=== PATIENT | female | born 1960 | race Caucasian/White ===

== ENCOUNTER 2018-03-06 14:55 | Observation (INO) ==
[2018-03-06 16:27] LABS: Bilirubin,Urine Moderate (Negative); Blood,Urine Negative (Negative); Clarity,Urine Cloudy (Clear); Color,Urine Orange (Yellow); Glucose,Urine (UA) Normal (Normal); Ketones,Urine 40 mg/dL (Negative); Leukocyte Esterase,Urine Small (Negative); Nitrite,Urine Negative (Negative); Protein,Urine 30 mg/dL (Neg-Trace); Specific Gravity,Urine 1.025 (1.010-1.025)
[2018-03-06 16:30] LABS: Bacteria,Urine Few per hpf (None-Few); Hyaline Casts,Urine Few per lpf (None-Few); Squamous Epithelial Cell,Urine Many per lpf (None-Few)
[2018-03-06 16:41] LABS: RBC,Urine 0-3 per hpf (0-3)
[2018-03-06] MEDS ORDERED: 0.9 % Sodium Chloride 1,000 ML IVC ONE ×2 (16:41→17:25)
[2018-03-06] MEDS ORDERED: Ondansetron 4 MG/2 ML VIAL IVP ONE ×2 (16:41→18:17)
--- NOTE | 2018-03-06 16:44 | Emergency Department Note ---
Disposition Clinical Impression: Hypokalemia Hypotension Qualifiers: Hypotension type: unspecified hypotension type Qualified Code(s): I95.9 - Hypotension, unspecified Intractable nausea and vomiting Qualifiers: Vomiting type: unspecified Qualified Code(s): R11.2 - Nausea with vomiting, unspecified Pneumonia Qualifiers: Pneumonia type: due to unspecified organism Laterality: right Lung location: unspecified part of lung Qualified Code(s): J18.9 - Pneumonia, unspecified organism Disposition: Admitted As Inpatient Condition: Good Referrals: Dillon Rasmussen Jr, MD [Primary Care Provider] - Eric Mckenzie MD [Family Provider] - Forms: ED Satisfaction Letter Time of Disposition: 18:54 General Adult HPI - General Chief complaint: ED Nausea/Vomiting/Diarrhea Stated complaint: vomiting, nausea Time Seen by Provider: 03/06/18 16:22 Source: patient, family Limitations: no limitations Nursing Notes Reviewed: Yes Vital Signs Reviewed: Yes - History of Present Illness HPI Narrative: 57 year old female presents emergency department with concern for chills weakness of last week. Patient's reported uncontrolled nausea or vomiting. She reports some mild abdominal discomfort as well as generalized in nature. Patient does have previous history of stroke. Patient denies any slurring of speech, unilateral numbness or tingling of the upper or lower extremities. She does report some mild paresthesias of both upper extremities. Patient denies any fevers, chills, cough. She does report some mild exertional dyspnea. No known history of congestive heart failure. Denies any pedal edema. Pain Scale: 7 - Related Data Home Medications Medication Instructions Recorded Confirmed Citalopram Hydrobromide 20 mg PO DAILY 03/06/18 03/06/18 [Citalopram HBr] Labetalol HCl [Labetalol HCl] 200 mg PO BID 03/06/18 03/06/18 LevETIRAcetam [Keppra] 500 mg PO BID 03/06/18 03/06/18 Losartan/Hydrochlorothiazide 1 tab PO DAILY 03/06/18 03/06/18 [Losartan-Hctz 50-12.5 mg Tab] NIFEdipine [Nifedipine ER] 90 mg PO DAILY 03/06/18 03/06/18 Tramadol HCl [Ultram] 50 mg PO QID PRN 03/06/18 03/06/18 Allergies Allergy/AdvReac Type Severity Reaction Status Date / Time captopril [From Capoten] AdvReac Seizure Verified 03/06/18 18:40 promethazine [From Phenergan] AdvReac Seizure Verified 03/06/18 18:40 All systems ED: reviewed and negative except as stated. Review of Systems: As Per HPI Constitutional: Reports: weakness. Denies: fever, chills Cardiovascular: Denies: chest pain, palpitations, edema, syncope Respiratory: Reports: dyspnea. Denies: cough, wheezes, hemoptysis, sputum production Gastrointestinal: Reports: abdominal pain, nausea, vomiting. Denies: diarrhea Genitourinary: Denies: urgency, dysuria, frequency, hematuria Musculoskeletal: Denies: back pain, neck pain Neurological: Reports: weakness, paresthesias. Denies: headache Endocrine: Reports: fatigue Past Medical History - Past Medical History Medical history: Reports: CVA, hypertension Psychiatric history: Reports: no psych history - Social History Smoking Status: Never smoker Alcohol use: Reports: none Drug use: Reports: none Physical Exam - General Limitations: no limitations General appearance: alert, in no apparent distress - Head Head exam: atraumatic, normocephalic - Eye Eye exam: Present: EOMI. Absent: scleral icterus - ENT ENT exam: normal exam, normal oropharynx - Neck Neck exam: Present: trachea midline. Absent: tenderness, meningismus - Chest Chest inspection: Present: normal inspection, symmetric chest wall rise - Respiratory Respiratory exam: Present: normal lung sounds bilaterally, other (Oxygen saturation 94% on room air.). Absent: respiratory distress, accessory muscle use - Cardiovascular Cardiovascular exam: Present: regular rate, normal rhythm, normal heart sounds - Abdominal Exam Abdominal exam: Present: soft, Non-Tender. Absent: distention, guarding, rebound - Back Exam Back exam: Present: normal inspection, full ROM - Neurological Exam Neurological exam: Present: alert, oriented X3, CN II-XII intact, other (Normal [id number], no pronator drift, GCS 15) - Psychiatric Psychiatric exam: Present: normal affect, normal mood - Skin Skin exam: Present: warm, dry, intact. Absent: rash Course Vital Signs Temperature 97.6 F 03/06/18 15:09 Pulse Rate 82 03/06/18 15:09 Respiratory Rate 14 03/06/18 15:09 Blood Pressure 88/62 03/06/18 15:09 O2 Sat by Pulse Oximetry 95 03/06/18 15:09 Temperature 97.6 F 03/06/18 16:28 Pulse Rate 68 03/06/18 18:30 Respiratory Rate 14 03/06/18 18:30 Blood Pressure 127/91 03/06/18 18:30 O2 Sat by Pulse Oximetry 95 03/06/18 18:30 Oxygen Delivery Oxygen Delivery Room Air Medical Decision Making - [facility] Narrative Medical decision making narrative: 57-year-old female presents emergency department with generalized weakness, nausea, vomiting for the last week. Initial blood pressure patient had a systolic of 80. Patient has known history of stroke. We will obtain CT of the head did not reveal any acute intracranial abnormality. We obtained chest x- ray which revealed possible infiltrate versus nodule of the right lung. Patient is mildly elevated creatinine here. Do not have a previous creatinine to compare this one to. Patient was given 4 mg of Zofran IV and this helped out with some of her nausea. We gave her another 4 mg of Zofran as well. Patient was given 2 L of fluid here in the emergency department. Patient was started on Levaquin here as patient could possibly be having a walking pneumonia. Troponin was within normal limits. EKG revealed no ischemic ST changes, but revealed low voltage QRS complexes throughout. Bedside cardiac ultrasound was obtained and this did not reveal any evidence of cardiac tamponade or any pericardial effusion. Patient was mildly hypokalemic with a potassium of 3.1. We started IV potassium and 40 mEq as patient is not able tolerate oral intake. Discussion was made at bedside as patient was having intractable nausea vomiting was not able to tolerate oral intake in the setting of possible pneumonia as well as hypokalemia. Patient and agreed with plan for admission. Spoke with the hospitalist on the phone and he agreed for admission. Requested that we order Legionella antigen as well as strep antigen. These tests were ordered and are currently pending. Patient's blood pressure as her improved significantly after administration of 2 L of boluses of fluids. Current blood pressure 127/91. Chest X-Ray 03/06/18 16:39 IMPRESSION: Ill-defined opacity involving the right parahilar region, could represent evolving infiltrate or pulmonary nodule. Consider chest CT correlation. D/ / 03/06/2018 16:58:14 Eric Akins MD / joe Interpreting Provider: Eric Akins MD Head CT 03/06/18 16:39 IMPRESSION: No acute intracranial abnormality. Evidence for an old left basal ganglia region infarct D/ / Lukas Locke MD / Lukas Locke MD Interpreting Provider: Lukas Locke MD Vital Signs Temperature 97.6 F 03/06/18 15:09 Pulse Rate 82 03/06/18 15:09 Respiratory Rate 14 03/06/18 15:09 Blood Pressure 88/62 03/06/18 15:09 O2 Sat by Pulse Oximetry 95 03/06/18 15:09 Temperature 97.6 F 03/06/18 16:28 Pulse Rate 68 03/06/18 18:30 Respiratory Rate 14 03/06/18 18:30 Blood Pressure 127/91 03/06/18 18:30 O2 Sat by Pulse Oximetry 95 03/06/18 18:30 Oxygen Delivery Oxygen Delivery Room Air - Lab Data Result diagrams: 03/06/18 15:58 03/06/18 15:58 Lab Results 03/06/18 03/06/18 03/06/18 Range/Units 15:58 15:58 16:15 WBC 5.0 (4.3-11.1) K/mcL RBC 4.60 (3.82-4.97) M/mcL Hgb 14.4 (11.5-15.4) g/dL Hct 41.1 (35.3-44.9) % MCV 89.3 (83.0-100.0) fL MCH 31.3 (28.0-33.3) pg MCHC 35.0 (31.6-35.5) g/dL RDW 13.1 (11.5-14.5) % Plt Count 148 (140-400) K/mcL MPV 10.8 (9.4-12.4) fL Immature Gran % 0.0 (0-4) % Seg Neutrophils % 77.5 % Lymphocytes % 17.3 % Monocytes % 5.0 % Eosinophils % 0.0 % Basophils % 0.2 % Neutrophils # 3.9 (1.6-8.9) K/mcL Lymphocytes # 0.9 (0.6-4.6) K/mcL Monocytes # 0.3 (0.0-1.3) K/mcL Eosinophils # 0.0 (0.0-0.6) K/mcL Basophils # 0.0 (0.0-0.2) K/mcL Sodium 136 (136-145) mEq/L Potassium 3.1 L (3.5-5.1) mEq/L Chloride 95 L (98-107) mEq/L Carbon Dioxide 27 (23-29) mEq/L BUN 21 H (6-20) mg/dL Creatinine 1.23 H (0.60-1.20) mg/dL Est GFR ( Amer) 55 L (> 60) Est GFR (Non-Af Amer) 45 L (> 60) BUN/Creatinine Ratio 17 (6-26) Glucose 98 (70-105) mg/dL Calculated Osmolality 285 (280-300) Calcium 8.7 (8.6-10.3) mg/dL Total Bilirubin (0.3-1.0) mg/dL Direct Bilirubin (0.0-0.2) mg/dL Indirect Bilirubin (0.0-1.2) mg/dL AST (13-39) Units/L ALT (7-52) Units/L Alkaline Phosphatase (34-104) Units/L Troponin I (< 0.04) ng/mL Serum Total Protein (6.4-8.9) g/dL Albumin (3.5-5.7) g/dL Globulin (2.4-3.5) g/dL Albumin/Globulin Ratio (1.1-2.2) Lipase (11-82) Units/L TSH (0.340-5.600) mcIU/mL Urine Color [place] A (Yellow) Urine Clarity Cloudy A (Clear) Urine pH 6.0 (5.0-8.0) pH Units Ur Specific [place] 1.025 (1.010-1.025) Urine Protein 30 H (Neg-Trace) mg/dL Urine Glucose (UA) Normal (Normal) mg/dL Urine Ketones 40 H (Negative) mg/dL Urine Blood Negative (Negative) Urine Nitrite Negative (Negative) Urine Bilirubin Moderate H (Negative) Urine Urobilinogen 4.0 H (Normal) mg/dL Ur Leukocyte Esterase Small H (Negative) Urine Microscopic RBC 0-3 (0-3) per hpf Urine Microscopic WBC 5-15 H (0-3) per hpf Ur Squamous Epith Cells Many H (None-Few) per lpf Urine Bacteria Few (None-Few) per hpf Hyaline Casts Few (None-Few) per lpf Ur Culture Indicated? NO. A (NO) 03/06/18 Range/Units 16:40 WBC (4.3-11.1) K/mcL RBC (3.82-4.97) M/mcL Hgb (11.5-15.4) g/dL Hct (35.3-44.9) % MCV (83.0-100.0) fL MCH (28.0-33.3) pg MCHC (31.6-35.5) g/dL RDW (11.5-14.5) % Plt Count (140-400) K/mcL MPV (9.4-12.4) fL Immature Gran % (0-4) % Seg Neutrophils % % Lymphocytes % % Monocytes % % Eosinophils % % Basophils % % Neutrophils # (1.6-8.9) K/mcL Lymphocytes # (0.6-4.6) K/mcL Monocytes # (0.0-1.3) K/mcL Eosinophils # (0.0-0.6) K/mcL Basophils # (0.0-0.2) K/mcL Sodium (136-145) mEq/L Potassium (3.5-5.1) mEq/L Chloride (98-107) mEq/L Carbon Dioxide (23-29) mEq/L BUN (6-20) mg/dL Creatinine (0.60-1.20) mg/dL Est GFR ( Amer) (> 60) Est GFR (Non-Af Amer) (> 60) BUN/Creatinine Ratio (6-26) Glucose (70-105) mg/dL Calculated Osmolality (280-300) Calcium (8.6-10.3) mg/dL Total Bilirubin 0.8 (0.3-1.0) mg/dL Direct Bilirubin 0.3 H (0.0-0.2) mg/dL Indirect Bilirubin 0.5 (0.0-1.2) mg/dL AST 41 H (13-39) Units/L ALT 26 (7-52) Units/L Alkaline Phosphatase 65 (34-104) Units/L Troponin I < 0.03 (< 0.04) ng/mL Serum Total Protein 6.6 (6.4-8.9) g/dL Albumin 3.9 (3.5-5.7) g/dL Globulin 2.7 (2.4-3.5) g/dL Albumin/Globulin Ratio 1.4 (1.1-2.2) Lipase 44 (11-82) Units/L TSH 3.028 (0.340-5.600) mcIU/mL Urine Color (Yellow) Urine Clarity (Clear) Urine pH (5.0-8.0) pH Units Ur Specific [place] (1.010-1.025) Urine Protein (Neg-Trace) mg/dL Urine Glucose (UA) (Normal) mg/dL Urine Ketones (Negative) mg/dL Urine Blood (Negative) Urine Nitrite (Negative) Urine Bilirubin (Negative) Urine Urobilinogen (Normal) mg/dL Ur Leukocyte Esterase (Negative) Urine Microscopic RBC (0-3) per hpf Urine Microscopic WBC (0-3) per hpf Ur Squamous Epith Cells (None-Few) per lpf Urine Bacteria (None-Few) per hpf Hyaline Casts (None-Few) per lpf Ur Culture Indicated? (NO) - EKG Data EKG #1 EKG attestation: Yes I reviewed and interpreted this EKG. EKG results narrative: 16:44 Ventricular rate 72 bpm, WA interval 153 ms, QRS duration 72 ms, QT 380 ms, QTC 403 ms, attacks deviation. Sinus rhythm with a ventricular rate of 72 bpm. There is low QRS voltage throughout. No evidence of any ischemic ST changes on this electrocardiogram.
[2018-03-06 17:03] LABS: Basophils % 0.2 %; Hematocrit 41.1 % (35.3-44.9); Hemoglobin 14.4 g/dL (11.5-15.4); Lymphocytes # 0.9 K/mcL (0.6-4.6); Lymphocytes % 17.3 %; Mean Corpuscular Hemoglobin 31.3 pg (28.0-33.3); Mean Corpuscular Volume 89.3 fL (83.0-100.0); Mean Platelet Volume 10.8 fL (9.4-12.4); Monocytes # 0.3 K/mcL (0.0-1.3); Neutrophils # 3.9 K/mcL (1.6-8.9); Platelet Count 148 K/mcL (140-400); Red Cell Distribution Width 13.1 % (11.5-14.5); Segmented Neutrophils % 77.5 %
[2018-03-06 17:18] LABS: Troponin I < 0.03 ng/mL (< 0.04)
[2018-03-06 17:19] LABS: Calcium 8.7 mg/dL (8.6-10.3); Potassium 3.1 mEq/L (3.5-5.1)
[2018-03-06 17:24] LABS: Alanine Aminotransferase 26 Units/L (7-52); Albumin 3.9 g/dL (3.5-5.7); Albumin/Globulin Ratio 1.4 (1.1-2.2); Alkaline Phosphatase 65 Units/L (34-104); Aspartate Amino Transferase 41 Units/L (13-39); Bilirubin,Direct 0.3 mg/dL (0.0-0.2); Bilirubin,Indirect 0.5 mg/dL (0.0-1.2); Bilirubin,Total 0.8 mg/dL (0.3-1.0); Globulin 2.7 g/dL (2.4-3.5); Lipase 44 Units/L (11-82); Total Protein 6.6 g/dL (6.4-8.9)
[2018-03-06 17:31] LABS: Thyroid Stimulating Hormone 3.028 mcIU/mL (0.340-5.600)
--- NOTE | 2018-03-06 18:29 | Emergency Department Note ---
Disposition Clinical Impression: Hypotension Qualifiers: Hypotension type: unspecified hypotension type Qualified Code(s): I95.9 - Hypotension, unspecified Intractable nausea and vomiting Qualifiers: Vomiting type: unspecified Qualified Code(s): R11.2 - Nausea with vomiting, unspecified Disposition: Admitted As Inpatient Condition: Good Referrals: Eric Mckenzie MD [Family Provider] - Dillon Rasmussen Jr, MD [Primary Care Provider] - Forms: ED Satisfaction Letter Time of Disposition: 18:20 General Adult HPI - General Chief complaint: ED Nausea/Vomiting/Diarrhea Stated complaint: vomiting, nausea Time Seen by Provider: 03/06/18 16:22 Source: patient, family Limitations: no limitations Nursing Notes Reviewed: Yes Vital Signs Reviewed: Yes - History of Present Illness Pain Scale: 7 - Related Data Allergies Allergy/AdvReac Type Severity Reaction Status Date / Time captopril [From Capoten] AdvReac Seizure Verified 03/06/18 16:45 promethazine [From Phenergan] AdvReac Seizure Verified 03/06/18 16:45 Past Medical History - Past Medical History Medical history: Reports: CVA, hypertension Psychiatric history: Reports: no psych history - Social History Smoking Status: Never smoker Alcohol use: Reports: none Drug use: Reports: none Physical Exam - General Limitations: no limitations General appearance: alert, in no apparent distress Course Vital Signs Temperature 97.6 F 03/06/18 15:09 Pulse Rate 82 03/06/18 15:09 Respiratory Rate 14 03/06/18 15:09 Blood Pressure 88/62 03/06/18 15:09 O2 Sat by Pulse Oximetry 95 03/06/18 15:09 Temperature 97.6 F 03/06/18 16:28 Pulse Rate 69 03/06/18 17:31 Respiratory Rate 12 03/06/18 17:31 Blood Pressure 110/77 03/06/18 17:31 O2 Sat by Pulse Oximetry 94 03/06/18 17:31 Oxygen Delivery Oxygen Delivery Room Air Medical Decision Making - Lab Data Result diagrams: 03/06/18 15:58 03/06/18 15:58 Lab Results 03/06/18 03/06/18 03/06/18 Range/Units 15:58 15:58 16:15 WBC 5.0 (4.3-11.1) K/mcL RBC 4.60 (3.82-4.97) M/mcL Hgb 14.4 (11.5-15.4) g/dL Hct 41.1 (35.3-44.9) % MCV 89.3 (83.0-100.0) fL MCH 31.3 (28.0-33.3) pg MCHC 35.0 (31.6-35.5) g/dL RDW 13.1 (11.5-14.5) % Plt Count 148 (140-400) K/mcL MPV 10.8 (9.4-12.4) fL Immature Gran % 0.0 (0-4) % Seg Neutrophils % 77.5 % Lymphocytes % 17.3 % Monocytes % 5.0 % Eosinophils % 0.0 % Basophils % 0.2 % Neutrophils # 3.9 (1.6-8.9) K/mcL Lymphocytes # 0.9 (0.6-4.6) K/mcL Monocytes # 0.3 (0.0-1.3) K/mcL Eosinophils # 0.0 (0.0-0.6) K/mcL Basophils # 0.0 (0.0-0.2) K/mcL Sodium 136 (136-145) mEq/L Potassium 3.1 L (3.5-5.1) mEq/L Chloride 95 L (98-107) mEq/L Carbon Dioxide 27 (23-29) mEq/L BUN 21 H (6-20) mg/dL Creatinine 1.23 H (0.60-1.20) mg/dL Est GFR ( Amer) 55 L (> 60) Est GFR (Non-Af Amer) 45 L (> 60) BUN/Creatinine Ratio 17 (6-26) Glucose 98 (70-105) mg/dL Calculated Osmolality 285 (280-300) Calcium 8.7 (8.6-10.3) mg/dL Total Bilirubin (0.3-1.0) mg/dL Direct Bilirubin (0.0-0.2) mg/dL Indirect Bilirubin (0.0-1.2) mg/dL AST (13-39) Units/L ALT (7-52) Units/L Alkaline Phosphatase (34-104) Units/L Troponin I (< 0.04) ng/mL Serum Total Protein (6.4-8.9) g/dL Albumin (3.5-5.7) g/dL Globulin (2.4-3.5) g/dL Albumin/Globulin Ratio (1.1-2.2) Lipase (11-82) Units/L TSH (0.340-5.600) mcIU/mL Urine Color [place] A (Yellow) Urine Clarity Cloudy A (Clear) Urine pH 6.0 (5.0-8.0) pH Units Ur Specific [place] 1.025 (1.010-1.025) Urine Protein 30 H (Neg-Trace) mg/dL Urine Glucose (UA) Normal (Normal) mg/dL Urine Ketones 40 H (Negative) mg/dL Urine Blood Negative (Negative) Urine Nitrite Negative (Negative) Urine Bilirubin Moderate H (Negative) Urine Urobilinogen 4.0 H (Normal) mg/dL Ur Leukocyte Esterase Small H (Negative) Urine Microscopic RBC 0-3 (0-3) per hpf Urine Microscopic WBC 5-15 H (0-3) per hpf Ur Squamous Epith Cells Many H (None-Few) per lpf Urine Bacteria Few (None-Few) per hpf Hyaline Casts Few (None-Few) per lpf Ur Culture Indicated? NO. A (NO) 03/06/18 Range/Units 16:40 WBC (4.3-11.1) K/mcL RBC (3.82-4.97) M/mcL Hgb (11.5-15.4) g/dL Hct (35.3-44.9) % MCV (83.0-100.0) fL MCH (28.0-33.3) pg MCHC (31.6-35.5) g/dL RDW (11.5-14.5) % Plt Count (140-400) K/mcL MPV (9.4-12.4) fL Immature Gran % (0-4) % Seg Neutrophils % % Lymphocytes % % Monocytes % % Eosinophils % % Basophils % % Neutrophils # (1.6-8.9) K/mcL Lymphocytes # (0.6-4.6) K/mcL Monocytes # (0.0-1.3) K/mcL Eosinophils # (0.0-0.6) K/mcL Basophils # (0.0-0.2) K/mcL Sodium (136-145) mEq/L Potassium (3.5-5.1) mEq/L Chloride (98-107) mEq/L Carbon Dioxide (23-29) mEq/L BUN (6-20) mg/dL Creatinine (0.60-1.20) mg/dL Est GFR ( Amer) (> 60) Est GFR (Non-Af Amer) (> 60) BUN/Creatinine Ratio (6-26) Glucose (70-105) mg/dL Calculated Osmolality (280-300) Calcium (8.6-10.3) mg/dL Total Bilirubin 0.8 (0.3-1.0) mg/dL Direct Bilirubin 0.3 H (0.0-0.2) mg/dL Indirect Bilirubin 0.5 (0.0-1.2) mg/dL AST 41 H (13-39) Units/L ALT 26 (7-52) Units/L Alkaline Phosphatase 65 (34-104) Units/L Troponin I < 0.03 (< 0.04) ng/mL Serum Total Protein 6.6 (6.4-8.9) g/dL Albumin 3.9 (3.5-5.7) g/dL Globulin 2.7 (2.4-3.5) g/dL Albumin/Globulin Ratio 1.4 (1.1-2.2) Lipase 44 (11-82) Units/L TSH 3.028 (0.340-5.600) mcIU/mL Urine Color (Yellow) Urine Clarity (Clear) Urine pH (5.0-8.0) pH Units Ur Specific [place] (1.010-1.025) Urine Protein (Neg-Trace) mg/dL Urine Glucose (UA) (Normal) mg/dL Urine Ketones (Negative) mg/dL Urine Blood (Negative) Urine Nitrite (Negative) Urine Bilirubin (Negative) Urine Urobilinogen (Normal) mg/dL Ur Leukocyte Esterase (Negative) Urine Microscopic RBC (0-3) per hpf Urine Microscopic WBC (0-3) per hpf Ur Squamous Epith Cells (None-Few) per lpf Urine Bacteria (None-Few) per hpf Hyaline Casts (None-Few) per lpf Ur Culture Indicated? (NO) Attestation Statement - Attestation Attestation: I, Lito Rondon, examined this patient and my medical decision-making was reviewed with the GARNETT FEEDER/PA/Advanced Practice Nurse/Resident Physician. I agree with the documented findings, disposition and treatment plan as described except to the extent set forth below. 57-year-old female brought to the emergency department by for concerns of persistent nausea and vomiting. Patient states symptoms started acutely 4 days prior to arrival in the emergency department. She has been unable to tolerate by mouth intake since that time. was very concerned about possible dehydration. They state she has a history of previous stroke but does not have residual deficits. Patient denies new focal neurologic deficits. She describes feeling general weakness and fatigue. Denies chest pain however she becomes very short of breath with exertion. Patient's lungs are clear to auscultation in the emergency department. Chest x-ray did not show acute infiltrate or pneumothorax. CT of the head did not show acute intracranial hemorrhage. Patient was initially hypotensive in the emergency department. Patient was given antiemetics and IV fluids in the emergency Department however she remained nauseated. She feels comfortable with the plan for admission to the hospital for further care and evaluation. X-ray of the chest showed pulmonary infiltrate versus a nodule which will require further imaging. Patient will be started on Levaquin the emergency department. She will be admitted for further care and evaluation.
[2018-03-06] MEDS ORDERED: Levofloxacin 750 MG/150 ML 750 MG/150 ML BAG IVPB ONE (18:35)
[2018-03-06] MEDS ORDERED: Naloxone 0.4 MG/ML INJ IVP PRN (19:40)
[2018-03-06] MEDS ORDERED: Ondansetron 4 MG/2 ML VIAL IVP PRN (19:40)
[2018-03-06] MEDS ORDERED: OXYCODONE Oral CONC 10 MG/0.5 ML ORAL.SYG SL PRN ×2 (19:40)
[2018-03-06] MEDS ORDERED: 0.9 % Sodium Chloride 1,000 ML IVC SCH (19:45)
--- NOTE | 2018-03-06 19:51 | Internal Med History&Physical ---
Date of Encounter: 03/06/18 Time of Encounter: 19:48 Internal Medicine - H&P: HPI Chief complaint: Abdominal pain and vomiting Admitted From: Emergency Dept History of present illness: Ms. Anderson is a 57 year old female with a past medical history of CVA, depression , hypertension, who came to emergency room complaining of chills for 1 week, abdominal pain and vomiting every day after eating, there are no prior labs, creatinine is 1.23 potassium 3.1. The patient was hypotensive in the 80s and very dehydrated, she says she is not been passing gas, chest x-ray in the emergency room showed the right parahilar opacity that is compatible with any filtrate and she has been coughing lately. CT scan of the head was performed showing an old left basal infarct. UA shows 15 white blood cells and ketones. She was given a dose of Levaquin at the emergency room and potassium. Patient is complaining of tenderness in her abdomen. CT scan of the abdomen has not been done Past Med Surg Social Fam HX - Past Medical History Medical history: CVA, hypertension, other (Possible seizures, the patient is on Keppra but she does not know the reason why, hypertension, depression, CVA, possible chronic kidney disease stage III) Psychiatric history: no psych history - Past Surgical History Surgical History: other (Back surgery 2) Additional surgical history: back sg, spinal fusion - Social History Smoking Status: Never smoker Alcohol use: none Drug use: none - Additional Family History Additional family history: Father with heart disease Internal Medicine - H&P: Meds Citalopram Hydrobromide [Citalopram HBr] 20 mg PO DAILY 03/06/18 [History] Labetalol HCl [Labetalol HCl] 200 mg PO BID 03/06/18 [History] LevETIRAcetam [Keppra] 500 mg PO BID 03/06/18 [History] Losartan/Hydrochlorothiazide [Losartan-Hctz 50-12.5 mg Tab] 1 tab PO DAILY 03/06 [History] NIFEdipine [Nifedipine ER] 90 mg PO DAILY 03/06/18 [History] Tramadol HCl [Ultram] 50 mg PO QID PRN 03/06/18 [History] 3 Allergy/AdvReac Type Severity Reaction Status Date / Time captopril [From Capoten] AdvReac Seizure Verified 03/06/18 18:40 promethazine [From Phenergan] AdvReac Seizure Verified 03/06/18 18:40 All Systems PM: A 10-system review of systems was performed and is negative for pertinent findings except as documented above in the HPI. Review of systems: Chills, possible fevers at home, other systems out of the 10 reviewed were negative - Constitutional Vitals: Temp Pulse Resp BP Pulse Ox 97.6 F 69 20 125/89 94 03/06/18 16:28 03/06/18 19:30 03/06/18 19:30 03/06/18 19:30 03/06/18 19:30 General appearance: Present: A&O X 3 (Dry mucosa, appears dehydrated) - Head Head exam: Present: atraumatic, normocephalic - Eye Eye exam: Present: PERRL, conjuntiva pink, sclera anicteric Pupils: Present: PERRL - Neck Neck exam general surgery: Present: supple, trachea midline. Absent: lymphadenopathy - Respiratory Respiratory exam: Present: CTAB. Absent: accessory muscle use, rales, rhonchi, wheezes - Cardiovascular Cardiovascular exam: Present: RRR, +S1, +S2. Absent: diastolic murmur, gallop, rubs, systolic murmur - GI/Abdominal GI/Abdominal exam: Present: normal bowel sounds, soft, tenderness (Diffuse tenderness), no peritoneal signs. Absent: distended - Extremities Exam Extremities exam: Present: warm, radial pulses palpable and symmetrical. Absent : calf tenderness, cyanotic, pedal edema - Neurological Exam Neurological exam: Present: CN II-XII intact, oriented X3, no focal deficits. Absent: pronater drift, facial droop, speech deficit - Skin Skin exam: Present: dry, intact Internal Med - H&P Results - Labs CBC & Chem 7: 03/06/18 15:58 03/06/18 15:58 Labs: Short CBC 03/06/18 Range/Units 15:58 WBC 5.0 (4.3-11.1) K/mcL Hgb 14.4 (11.5-15.4) g/dL Hct 41.1 (35.3-44.9) % Plt Count 148 (140-400) K/mcL Neutrophils # 3.9 (1.6-8.9) K/mcL BMP 03/06/18 15:58 Sodium 136 Potassium 3.1 L Chloride 95 L Carbon Dioxide 27 BUN 21 H Creatinine 1.23 H Glucose 98 Calcium 8.7 Cardiac Enzymes 03/06/18 Range/Units 16:40 Troponin I < 0.03 (< 0.04) ng/mL Liver Function 03/06/18 Range/Units 16:40 Total Bilirubin 0.8 (0.3-1.0) mg/dL Direct Bilirubin 0.3 H (0.0-0.2) mg/dL AST 41 H (13-39) Units/L ALT 26 (7-52) Units/L Alkaline Phosphatase 65 (34-104) Units/L Albumin 3.9 (3.5-5.7) g/dL Urine 03/06/18 Range/Units 16:15 Urine Color [place] A (Yellow) Urine Clarity Cloudy A (Clear) Urine pH 6.0 (5.0-8.0) pH Units Ur Specific [place] 1.025 (1.010-1.025) Urine Protein 30 H (Neg-Trace) mg/dL Urine Glucose (UA) Normal (Normal) mg/dL - Impressions ITS Impressions Chest X-Ray 03/06/18 16:39 IMPRESSION: Ill-defined opacity involving the right parahilar region, could represent evolving infiltrate or pulmonary nodule. Consider chest CT correlation. D/ / 03/06/2018 16:58:14 Eric Akins MD / [place] Interpreting Provider: Eric Akins MD Head CT 03/06/18 16:39 IMPRESSION: No acute intracranial abnormality. Evidence for an old left basal ganglia region infarct D/ / Lukas Locke MD / Lukas Locke MD Interpreting Provider: Lukas Locke MD - Assessment and plan (1) Intractable nausea and vomiting Current Visit: Yes Status: Acute Assessment and plan: Intractable nausea and vomiting, with dehydration and possible acute renal failure Consider possible small bowel obstruction Order CT scan of the abdomen with oral contrast only Nothing by mouth, IV fluids, pain control Protonix IV for GI prophylaxis and so with tenderness heparin for DVT prophylaxis. The patient will be admitted for observation. Full code. Time spent on this admission 40 minutes Qualifiers: Vomiting type: unspecified Qualified Code(s): R11.2 - Nausea with vomiting , unspecified (2) Pneumonia Current Visit: Yes Status: Acute Assessment and plan: Possible community-acquired pneumonia unknown agent, as well as UTI Continue Levaquin, Order lactic acid, blood cultures Qualifiers: Pneumonia type: due to unspecified organism Laterality: right Lung location: unspecified part of lung Qualified Code(s): J18.9 - Pneumonia, unspecified organism (3) History of CVA (cerebrovascular accident) Current Visit: Yes Status: Acute Assessment and plan: No residual focal deficits May use aspirin if able to swallow (4) Hypokalemia Current Visit: Yes Status: Acute Assessment and plan: Add potassium to the IV fluids (5) Hypotension Current Visit: Yes Status: Acute Assessment and plan: Hold labetalol, losartan, hydrochlorothiazide and nifedipine Qualifiers: Hypotension type: unspecified hypotension type Qualified Code(s): I95.9 - Hypotension, unspecified - Time Spent With Patient Total time spent is greater than 50% in coordination of care (as documented) at patient's floor/unit and/or counseling patient:
[2018-03-06] MEDS: Pantoprazole 40 MG VIAL IVP SCH (23:07)
[2018-03-06] MEDS: levETIRAcetam 250 MG TABLET PO SCH (23:08)
[2018-03-07] MEDS: Pantoprazole 40 MG VIAL IVP SCH (07:51)
[2018-03-07] MEDS: levETIRAcetam 250 MG TABLET PO SCH ×2 (07:52→22:09)
[2018-03-07 08:26] LABS: Hematocrit 38.1 % (35.3-44.9); Hemoglobin 12.9 g/dL (11.5-15.4); Mean Corpuscular HGB Conc 33.9 g/dL (31.6-35.5); Mean Corpuscular Hemoglobin 30.4 pg (28.0-33.3); Mean Corpuscular Volume 89.6 fL (83.0-100.0); Mean Platelet Volume 11.4 fL (9.4-12.4); Platelet Count 122 K/mcL (140-400); Red Blood Count 4.25 M/mcL (3.82-4.97); Red Cell Distribution Width 13.2 % (11.5-14.5)
[2018-03-07 08:48] LABS: BUN/Creatinine Ratio 14 (6-26); Blood Urea Nitrogen 11 mg/dL (6-20); Calcium 7.9 mg/dL (8.6-10.3); Carbon Dioxide 25 mEq/L (23-29); Chloride 105 mEq/L (98-107); Glucose 78 mg/dL (70-105); Osmolality,Calculated 288 (280-300); Potassium 3.7 mEq/L (3.5-5.1); Sodium 140 mEq/L (136-145); eGFR For African Americans > 60 (> 60); eGFR For Non-African Americans > 60 (> 60)
--- NOTE | 2018-03-07 18:32 | Internal Med Progress Note ---
Date of Encounter: 03/07/18 Time of Encounter: 12:00 - Assessment and plan (1) Intractable nausea and vomiting Current Visit: Yes Status: Acute Assessment and plan: Intractable nausea and vomiting, with dehydration and possible acute renal failure-improving CT abd pelvis . Mild inflammatory stranding in the peripancreatic fat may indicate changes of underlying pancreatitis. Recommend correlation with laboratory findings. 2. No other significant findings in the abdomen or pelvis. We will continue with IV fluids-if unable to keep down oral intake continued pain control advance diet as tolerated 3 she does have UTI which could be contributing as well as chest x-ray representing a possible evolving infiltrate will continue with Levaquin for broad coverage Qualifiers: Vomiting type: unspecified Qualified Code(s): R11.2 - Nausea with vomiting , unspecified (2) Hypotension Current Visit: Yes Status: Acute Assessment and plan: Hold labetalol, losartan, hydrochlorothiazide and nifedipine, at this time. Blood pressure has been improving will continue to monitor Qualifiers: Hypotension type: unspecified hypotension type Qualified Code(s): I95.9 - Hypotension, unspecified (3) Hypokalemia Current Visit: Yes Status: Acute Assessment and plan: Resolved we will continue to monitor (4) Pneumonia Current Visit: Yes Status: Acute Assessment and plan: Possible community-acquired pneumonia unknown agent, as well as UTI Continue Levaquin, blood cultures pending Qualifiers: Pneumonia type: due to unspecified organism Laterality: right Lung location: unspecified part of lung Qualified Code(s): J18.9 - Pneumonia, unspecified organism (5) History of CVA (cerebrovascular accident) Current Visit: Yes Status: Acute Assessment and plan: No residual focal deficits May use aspirin if able to swallow - Time Spent With Patient Total time spent is greater than 50% in coordination of care (as documented) at patient's floor/unit and/or counseling patient: - Subjective Interval history: Patient seen and examined at bedside patient requesting to leave I did advise the patient that she has been admitted for intractable nausea and vomiting she has not been able to keep down solid foods and advised patient to stay and continue treatment. Advised patient she is feeling better because she received IV fluids, antibiotics . Advised that we will advance diet as tolerated and monitor overnight and to be reassessed in the a.m possible discharge in a.m. Patient verbalized under standing and agreement at this time - Constitutional Vitals: Temp Pulse Resp BP Pulse Ox 97.6 F 66 14 146/93 96 03/07/18 15:04 03/07/18 15:04 03/07/18 15:04 03/07/18 15:04 03/07/18 15:04 General appearance: Present: A&O X 3 (Dry mucosa, appears dehydrated) - Head Head exam: Present: atraumatic, normocephalic - Eye Eye exam: Present: PERRL, conjuntiva pink, sclera anicteric Pupils: Present: PERRL - Neck Neck exam general surgery: Present: supple, trachea midline. Absent: lymphadenopathy - Respiratory Respiratory exam: Present: CTAB. Absent: accessory muscle use, rales, rhonchi, wheezes - Cardiovascular Cardiovascular exam: Present: RRR, +S1, +S2. Absent: diastolic murmur, gallop, rubs, systolic murmur - GI/Abdominal GI/Abdominal exam: Present: normal bowel sounds, soft, no peritoneal signs. Absent: distended, tenderness - Extremities Exam Extremities exam: Present: warm, radial pulses palpable and symmetrical. Absent : calf tenderness, cyanotic, pedal edema - Neurological Exam Neurological exam: Present: CN II-XII intact, oriented X3, no focal deficits. Absent: pronater drift, facial droop, speech deficit - Skin Skin exam: Present: dry, intact Internal Medicine: Result - Labs CBC & Chem 7: 03/07/18 07:05 03/07/18 07:05 Labs: Short CBC 03/07/18 Range/Units 07:05 WBC 3.1 L (4.3-11.1) K/mcL Hgb 12.9 D (11.5-15.4) g/dL Hct 38.1 (35.3-44.9) % Plt Count 122 L (140-400) K/mcL BMP 03/07/18 07:05 Sodium 140 Potassium 3.7 Chloride 105 Carbon Dioxide 25 BUN 11 Creatinine 0.81 Glucose 78 Calcium 7.9 L - Impressions Impressions Abdomen/Pelvis CT 03/06/18 21:30 IMPRESSION: 1. Mild inflammatory stranding in the peripancreatic fat may indicate changes of underlying pancreatitis. Recommend correlation with laboratory findings. 2. No other significant findings in the abdomen or pelvis. D/ / Jaylen Hill MD / Jaylen Hill MD Interpreting Provider: Jaylen Hill MD Consult Discharge Plan - Plan Referrals: Dillon Rasmussen Jr, MD [Primary Care Provider] -
[2018-03-07] MEDS ORDERED: Levofloxacin 750 MG/150 ML 750 MG/150 ML BAG IVPB SCH (19:00)
--- NOTE | 2018-03-07 20:50 | Electrocardiograph Report ---
[place] [address] Test Date: 2018-03-06 Pat Name: Marcelina Anderson Department: 102 Room: 3B Gender: F [employer] Supervisor: : 1960 Requested By: Clay Hernandez Order Number: [id number] Reading MD: Bertram Dupree Measurements Intervals [place] Rate: 72 P: 42 NV: 153 QRS: -10 QRSD: 73 T: 62 QT: 380 QTc: 403 Interpretive Statements SINUS RHYTHM LOW QRS VOLTAGE IN PRECORDIAL LEADS Electronically Signed On 03-07-2018 20:49:14 EDT by Bertram Dupree
[2018-03-08 04:07] LABS: Red Cell Distribution Width 13.1 % (11.5-14.5)
[2018-03-08 04:09] LABS: Basophils % 0.4 %; Hematocrit 34.8 % (35.3-44.9); Hemoglobin 11.8 g/dL (11.5-15.4); Immature Granulocytes % 0.4 % (0-4); Immature Platelets 5.7 % (1.1-6.1); Lymphocytes % 33.8 %; Mean Corpuscular HGB Conc 33.9 g/dL (31.6-35.5); Mean Corpuscular Hemoglobin 29.9 pg (28.0-33.3); Mean Corpuscular Volume 88.3 fL (83.0-100.0); Mean Platelet Volume 11.4 fL (9.4-12.4); Monocytes # 0.2 K/mcL (0.0-1.3); Monocytes % 7.1 %; Neutrophils # 1.6 K/mcL (1.6-8.9); Platelet Count 107 K/mcL (140-400); Red Blood Count 3.94 M/mcL (3.82-4.97); Segmented Neutrophils % 58.3 %
[2018-03-08 04:18] LABS: BUN/Creatinine Ratio 10 (6-26); Blood Urea Nitrogen 7 mg/dL (6-20); Calcium 7.9 mg/dL (8.6-10.3); Carbon Dioxide 27 mEq/L (23-29); Chloride 108 mEq/L (98-107); Glucose 84 mg/dL (70-105); Osmolality,Calculated 293 (280-300); Potassium 3.9 mEq/L (3.5-5.1); Sodium 143 mEq/L (136-145); eGFR For African Americans > 60 (> 60); eGFR For Non-African Americans > 60 (> 60)
[2018-03-08] MEDS: Pantoprazole 40 MG VIAL IVP SCH (08:28)
[2018-03-08] MEDS: levETIRAcetam 250 MG TABLET PO SCH (08:32)
[2018-03-08] MEDS ORDERED: NON-FORMULARY MEDICATION 1 EACH EACH (Nifedipine [Nifedipine Er] 90 MG) PO SCH (09:00)
[2018-03-08] MEDS ORDERED: Aspirin 81 MG TAB.CHEW PO SCH (09:00)
[2018-03-08] MEDS ORDERED: LABETALOL HCL 200 MG PO SCH (09:00)
[2018-03-08 12:03] VITALS: BP 159/92
--- NOTE | 2018-03-08 18:23 | Electrocardiograph Report ---
[address] [place], [place] [address] Test Date: 2018-03-08 Pat Name: Marcelina Anderson Department: 113 Room: 3B Gender: F [employer]er: : 1960 Requested By: Leny Stephenson Order Number: [id number] Reading MD: Bertram Dupree Measurements Intervals [place] Rate: 60 P: 38 AL: 149 QRS: -10 QRSD: 73 T: 23 QT: 455 QTc: 456 Interpretive Statements SINUS RHYTHM LOW QRS VOLTAGE Electronically Signed On 03-08-2018 18:21:03 EDT by Bertram Dupree
[2018-03-08] MEDS ORDERED: Levofloxacin 750 MG/150 ML 750 MG/150 ML BAG IVPB SCH (19:00)
--- NOTE | 2018-03-08 21:18 | Discharge Summary ---
Date of Encounter: 03/08/18 Time of Encounter: 12:30 - Discharge Diagnosis (1) Intractable nausea and vomiting Priority: Primary Status: Acute Qualifiers: Vomiting type: unspecified Qualified Code(s): R11.2 - Nausea with vomiting , unspecified (2) Hypotension Priority: Secondary Status: Acute Qualifiers: Hypotension type: unspecified hypotension type Qualified Code(s): I95.9 - Hypotension, unspecified (3) Hypokalemia Priority: Secondary Status: Acute (4) Pneumonia Priority: Secondary Status: Acute Qualifiers: Pneumonia type: due to unspecified organism Laterality: right Lung location: unspecified part of lung Qualified Code(s): J18.9 - Pneumonia, unspecified organism (5) History of CVA (cerebrovascular accident) Priority: Secondary Status: Acute Hospital course: Ms. Anderson is a 57 year old female who history of CVA depression hypertension can emergency room complaining of chills for approximately one week of bowel pain vomiting everyday after eating no prior lab screening was 1.23 potassium was 3.1 on presentation she was hypotensive in the 80s very dehydrated chest x- ray emergency room showed right perihilar pasty was compatible with infiltrate and she had been coughing CT scan of her head was performed showed old left basilar infarct. UA did not show 50 white blood cells and ketones. CT scan of the abdomen did show mild inflammatory stranding in the P rate pancreatic fat which may indicate changes of underlying pancreatitis lab work was unremarkable however. She was given IV fluids and was made nothing by mouth. After 24 hours she began to feel better. Patient did have some changes on her EKG with low voltage which was different from previous EKG. It appeared that a limited echo was ordered in the ER however this was not completed. I did call down to echo department he stated that it was incorrectly placed. I did reorder an echo. I explained to the patient that I would like to have this completed since the EKG was different from previous she did not have any pleural effusion but would like to confirm echo before she left. Patient became very agitated stating that she wanted to leave however informed her that she should be completed quickly. She agreed to stay. I was later verified by nursing staff patient again very upset stating that she is going to leave. I advised nursing staff to tell patient she will leave AGAINST MEDICAL ADVICE. By the time I arrived to the patient's room she had already left - Time Spent with Patient Total time spent providing and/or coordinating discharge services: - Discharge Medications Home Medications: Citalopram Hydrobromide [Citalopram HBr] 20 mg PO DAILY 03/06/18 [History] Labetalol HCl [Labetalol HCl] 200 mg PO BID 03/06/18 [History] LevETIRAcetam [Keppra] 500 mg PO BID 03/06/18 [History] Losartan/Hydrochlorothiazide [Losartan-Hctz 50-12.5 mg Tab] 1 tab PO DAILY 03/06 [History] NIFEdipine [Nifedipine ER] 90 mg PO DAILY 03/06/18 [History] Tramadol HCl [Ultram] 50 mg PO QID PRN 03/06/18 [History] Allergies/Adverse Reactions: 3 Allergy/AdvReac Type Severity Reaction Status Date / Time captopril [From Capoten] AdvReac Seizure Verified 03/06/18 18:40 promethazine [From Phenergan] AdvReac Seizure Verified 03/06/18 18:40 Date of admission: 03/06/18 21:23 Primary care physician: Dillon Rasmussen Jr, MD - Constitutional Vitals: Temp Pulse Resp BP Pulse Ox 98.0 F 63 15 159/92 96 03/08/18 12:02 03/08/18 12:02 03/08/18 12:02 03/08/18 12:02 03/08/18 12:02 General appearance: Present: A&O X 3 (Dry mucosa, appears dehydrated) - Patient Status Disposition: Left Against Medical Advice Condition: Good - Discharge Instructions Follow Up With: Dillon Rasmussen Jr, MD [Primary Care Provider] -
== END 2018-03-08 13:04 | disposition left against medical advice (07) ==
LOC: 3BNU 14:55 → EMEROO 14:55 → 3BNU 22:01
PROVIDERS: ADMIT Internal Medicine; ATTEND Internal Medicine